=== PATIENT | male | born 1950 | race African-American/Black ===

== ENCOUNTER 2016-07-24 09:14 | Emergency (ER) | payer OTHER ==
[2016-07-24 09:22] VITALS: TEMP 97.8; BMI 34.0
--- NOTE | 2016-07-24 09:36 | PDOC ---
History of Present Illness - General History Source: Patient Exam Limitations: No Limitations - History of Present Illness Initial Comments: 07/24/16 10:50 The patient is a 66 year old male with a significant past medical history of hypertension, hyperlipidemia, and hepatitis C (s/p kait) who presets to the ED with complaints of intermittent episodes shortness of breath since last night. The patient reports feeling alittle tightness/pressure associated with mild sob last night, that resolved. 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 After he got back, he endorses feeling again a tignthess/sob discomfort that resolved after belching at approx 7:10 this morning. Pt states he is fairly active and has never felt sob/cp in the past. Pt endorses having a stress test approx 1-2 years ago that was normal. Patient also states he has been under a lot of stress lately secondary to his being in and out of the hospital for the last several weeks. He reports feeling jittery upon his arrival to the ED. denies palpitations, caffeine use. Patient denies fevers or chills. Denies chest pain or palpitations. Denies abdominal pain, nausea, vomiting, or diarrhea. Denies cough or headache. Denies any other symptoms. Social hx: The patient is a former smoker. <Jose R Liang - Last Filed: 07/24/16 12:17> <Geraldo Zambrano - Last Filed: 07/24/16 15:06> - General Chief Complaint: Shortness of Breath Stated Complaint: SOB Time Seen by Provider: 07/24/16 09:25 Past History <Jose R Liang - Last Filed: 07/24/16 12:17> - Past Medical History HTN: Yes Hypercholesterolemia: Yes Liver Disease: Yes ("I HAD HEP C-NOT ANYMORE") - Surgical History Cholecystectomy: Yes - Immunization History Immunization Up to Date: Yes - Psycho/Social/Smoking Cessation Hx Suicidal Ideation: No Smoking History: Former smoker Have you smoked in the past 12 months: No Information on smoking cessation initiated: No Hx Alcohol Use: No Drug/Substance Use Hx: No Substance Use Type: None <Geraldo Zambrano - Last Filed: 07/24/16 15:06> - Past Medical History Allergies/Adverse Reactions: Allergies Allergy/AdvReac Type Severity Reaction Status Date / Time erythromycin base Allergy Verified 07/24/16 09:17 Home Medications: Ambulatory Orders Nebivolol [Bystolic -] 5 mg PO DAILY 09/23/15 Simvastatin 40 mg PO DAILY 07/24/16 Review of Systems - Review of Systems Able to Perform ROS?: Yes Comments:: 07/24/16 10:51 CONSTITUTIONAL: No reported: Fever, Chills, Diaphoresis, Generalized Weakness, Malaise, Loss of Appetite HEENT: No reported: Rhinorrhea, Nasal Congestion, Throat Pain, Throat Swelling, Difficulty Swallowing, Mouth Swelling, Ear Pain, Eye Pain, Visual Changes CARDIOVASCULAR: No reported: Chest Pain, Syncope, Palpitations, Irregular Heart Rate, Lightheadedness, Peripheral Edema RESPIRATORY: + shortness of breath, No reported:Cough, SOB with Exertion, Orthopnea, Wheezing, Stridor, Hemoptysis GASTROINTESTINAL: No reported: Abdominal pain, Abdominal Distension, Nausea, Vomiting, Diarrhea, Constipation, Melena, Hematochezia GENITOURINARY: No reported: Dysuria, Frequency, Urgency, Hesitancy, Flank Pain, Genital Pain MUSCULOSKELETAL: No reported: Myalgia, Arthralgia, Joint Swelling, Back pain, Neck Pain SKIN: No reported: Rash, Itching, Pallor HEMEATOLOGIC/IMMUNOLOGIC: No reported: Easy Bleeding, Easy Bruising, Lymphadenopathy, Frequent infections ENDOCRINE: No reported: Unexplained Weight Gain, Unexplained Weight Loss, Heat Intolerance , Cold Intolerance NEUROLOGIC: No reported: Headache, Focal Weakness, Paresthesias, Vertigo, Lightheadedness, Unsteady Gait, Seizure, Mental Status Changes, Incontinence PSYCHIATRIC: No reported: Anxiety, Depression All Other Systems: Reviewed and Negative <Jose R Liang - Last Filed: 07/24/16 12:17> *Physical Exam - Vital Signs Last Vital Signs Temp Pulse Resp BP Pulse Ox 97.8 F 69 19 135/83 95 07/24/16 09:17 07/24/16 09:17 07/24/16 09:17 07/24/16 09:17 07/24/16 09:17 - Physical Exam Comments: 07/24/16 10:51 GENERAL: The patient is awake, alert, and fully oriented, Nontoxic - in no acute distress. HEAD: Normocephalic, atraumatic. EYES: extraocular movements intact, sclera anicteric, conjunctiva clear. ENT: Normal voice, Moist mucous membranes. NECK: Normal range of motion, supple LUNGS: Breath sounds equal, clear to auscultation bilaterally. No wheezes, no rhonchi, no rales. HEART: Regular rate and rhythm, without murmur, rub or gallop. ABDOMEN: + Regular obese abdomen. Soft, nontender, normoactive bowel sounds. No guarding, no rebound.No CVA tenderness EXTREMITIES: + 1+ pitting edema bilaterally. Normal range of motion. No clubbing or cyanosis. No cords, erythema, or tenderness. NEUROLOGICAL: No facial assymetry, Normal speech, movinga ll 4 extremities spontaneously and symmetrically PSYCH: Normal mood, normal affect. SKIN: Warm, Dry, normal turgor, <Jose R Liang - Last Filed: 07/24/16 12:17> - Vital Signs Last Vital Signs Temp Pulse Resp BP Pulse Ox 97.8 F 69 19 135/83 95 07/24/16 09:17 07/24/16 09:17 07/24/16 09:17 07/24/16 09:17 07/24/16 09:17 <Geraldo Zambrano - Last Filed: 07/24/16 15:06> Heart Score/ECG Review - ECG Impressions Comment:: 07/24/16 10:25 Twelve-lead EKG was performed and reviewed by me. There is normal sinus rhythm with a normal rate. Rate of 68 The axis is normal. The intervals are normal. There is normal R wave progression There are no ST or T wave abnormalities. Impression: Normal twelve-lead EKG <Geraldo Zambrano - Last Filed: 07/24/16 15:06> ED Treatment Course - LABORATORY CBC & Chemistry Diagram: 07/24/16 10:14 07/24/16 10:14 - ADDITIONAL ORDERS Additional order review: Laboratory Results 07/24/16 07/24/16 07/24/16 10:20 10:14 10:14 VBG pH 7.41 POC VBG pCO2 42.0 POC VBG pO2 61.6 H Mixed VBG HCO3 26.1 H Sodium 142 Potassium 3.8 Chloride 106 Carbon Dioxide 25 Anion Gap 11 BUN 9 D Creatinine 0.9 Creat Clearance w eGFR > 60 Random Glucose 104 Calcium 8.8 Total Bilirubin 0.5 D AST 22 D ALT 28 Alkaline Phosphatase 56 Creatine Kinase 558 H CK-MB (CK-2) Rel Index Cancelled Troponin I < 0.02 B-Natriuretic Peptide 29.68 Total Protein 7.6 Albumin 4.0 07/24/16 10:14 RBC 4.79 MCV 89.9 MCHC 32.6 RDW 14.2 MPV 7.7 Neutrophils % 67.3 Lymphocytes % 20.4 Monocytes % 9.7 Eosinophils % 1.8 Basophils % 0.8 - RADIOLOGY Radiograph Interpretation: 07/24/16 12:17 RAD/CHEST X-RAY PORTABLE Impression: Minimal left basilar atelectasis. Reported by: Patrick Penn <Jose R Liang - Last Filed: 07/24/16 12:17> - LABORATORY CBC & Chemistry Diagram: 07/24/16 10:14 07/24/16 10:14 <Geraldo Zambrano - Last Filed: 07/24/16 15:06> Medical Decision Making - Medical Decision Making 07/24/16 10:18 66Y M hx of htn, hcv presents with complaint of sob. 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 Pt currently asypmtomatic. on exam pts exam is unreamakble beside +1 pitting edema in the LE b/l without homans/calf tenderness. suspect indigestion/gas. 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 will ck ekg, labs, trop, cxr will reassess A portion of this note was documented by scribe services under my direction. I have reviewed the details of the note, within reason, and agree with the documentation with the following case summary and management plan written by me 07/24/16 10:32 cxr clear w/o infiltrate 07/24/16 11:15 The patient's blood work was reviewed The patient's CKs noted be elevated 500s troponin 1 is negative. I suspect that the patient's elevated CK is likely secondary to his exercising this morning I will give the patient's fluids will repeat another troponin at 2pm (6 hrs after his last episode of sob/chest pressure). 07/24/16 15:05 pts trop neg x2 pt asymptomatic will d/c the pt with pmd and cardiology fu return precautions were discussed I discussed the physical exam findings, ancillary test results and final diagnoses with the patient. I answered all of the patient's questions. The patient was satisfied with the care received and felt comfortable with the discharge plan and treatment plan. The patient will call their primary care physician within 24 hours to arrange follow-up and will return to the Emergency Department with any new, persistent or worsening symptoms. <Geraldo Zambrano - Last Filed: 07/24/16 15:06> *DC/Admit/Observation/Transfer - Attestations Scribe Attestion: 07/24/16 10:52 Documentation prepared by Jose R Liang, acting as medical lead for Geraldo Zambrano MD <Jose R Liang - Last Filed: 07/24/16 12:17> - Discharge Dispostion Admit: No <Geraldo Zambrano - Last Filed: 07/24/16 15:06> Diagnosis at time of Disposition: Abdominal bloating, SOB (shortness of breath) - Discharge Dispostion Disposition: HOME Condition at time of disposition: Improved - Referrals Referrals: Kojo Preston MD [Primary Care Provider] - - Patient Instructions Printed Discharge Instructions: DI for Atypical Chest Pain Additional Instructions: Return to the emergency department immediately with ANY new, persistent or worsening symptoms. You MUST call and follow up with your doctor tomorrow for further evaluation of your symptoms. Results were discussed with you. Please make sure your doctor reviews the results of your emergency evaluation. If you had any xrays during your visit, it was read preliminarily by myself, a Radiologist will review it and if there are any additional findings we will call you. Print Language: VENEZUELAN
[2016-07-24 10:26] LABS: BASOPHIL 0.8 % (0-2.0); EOSINOPHIL 1.8 % (0-4.5); MCH 29.3 pg (25.7-33.7); MCHC 32.6 g/dl (32.0-35.9); MEAN CELL VOLUME 89.9 fl (80-96); MEAN PLT VOLUME 7.7 fl (7.5-11.1); NEUTROPHILS 67.3 % (42.8-82.8); PLATELET COUNT 194 K/MM3 (134-434); RDW 14.2 % (11.9-15.9); WHITE BLOOD COUNT 5.9 K/mm3 (4.0-10.0)
[2016-07-24 10:38] LABS: VENOUS PH 7.41 (7.32-7.42)
[2016-07-24 10:39] LABS: VENOUS BLOOD GAS HCO3 26.1 meq/L (19-25)
[2016-07-24 10:45] LABS: ANION GAP 11 (8-16); BILIRUBIN,TOTAL 0.5 mg/dL (0.2-1.0); CALCIUM 8.8 mg/dL (8.5-10.1); CO2 25 mmol/L (21-32); CREATININE 0.9 mg/dL (0.7-1.3); GLUCOSE,RANDOM 104 mg/dL (74-106); SGOT/AST 22 U/L (15-37); SGPT/ALT 28 U/L (12-78); TOT PROT 7.6 g/dl (6.4-8.2)
[2016-07-24 10:47] LABS: ALK PHOS 56 U/L (45-117); TROPONIN I < 0.02 ng/ml (0.00-0.05)
[2016-07-24] MEDS ORDERED: SODIUM CHLORIDE 500 ML IV STA (10:59)
[2016-07-24 14:59] LABS: TROPONIN I < 0.02 ng/ml (0.00-0.05)
[2016-07-24 15:57] VITALS: BP 135/80; PULSE 80
--- NOTE | 2016-07-24 16:33 | EKG ---
Test Reason : Blood Pressure : / mmHG Vent. Rate : 068 BPM Atrial Rate : 068 BPM P-R Int : 162 ms QRS Dur : 082 ms QT Int : 392 ms P-R-T Axes : 049 -18 002 degrees QTc Int : 416 ms NORMAL SINUS RHYTHM NONSPECIFIC ST ABNORMALITY Confirmed by MD VAUGHN GREGORY ([id number]) on 07/24/2016 4:33:15 PM Referred By: Confirmed By:SOUMYA VAUGHN MD
== END 2016-07-24 15:58 | disposition home or self-care (01) ==
LOC: JER 09:14
PROC: 3E0337Z Introduction of Electrolytic and Water Balance Substance into Peripheral Vein, Percutaneous Approach (ICD-10-PCS; principal; 2016-07-24)
DX: R14.0 Abdominal distension (gaseous) (principal); R06.02 Shortness of breath; I10 Essential (primary) hypertension; E78.00 Pure hypercholesterolemia, unspecified; E78.5 Hyperlipidemia, unspecified; Z86.19 Personal history of other infectious and parasitic diseases
CPT/HCPCS: 36415; 71010-TC; 80053; 82550; 82553; 82803; 83880; 84484; 85025; 93005; 93010; 96360; 99283-25

== ENCOUNTER 2016-08-22 02:55 | Emergency (ER) | payer SELFPAY ==
[2016-08-22 03:37] VITALS: BP 146/99; PULSE 72; TEMP 97.2; BMI 32.3
--- NOTE | 2016-08-22 05:06 | PDOC ---
History of Present Illness - General Stated Complaint: INJURY Time Seen by Provider: 08/22/16 04:32 History Source: Patient Exam Limitations: No Limitations - History of Present Illness Initial Comments: 08/22/16 05:00 66yo Male patient presents to ED c/o left foot pain. Patient states he has a splinter stuck in his foot. He states he was walking barefoot in his house when incident occurred. Patient states his tried to remove splinter but was unsuccessful. Denies hx: DM. Denies any other complaints. Report tetanus status unknown. Occurred: reports: yesterday Severity: Yes: moderate Lower Extremity Pain Location: left: foot Method of Injury: Yes: other (Splinter stuck in foot plantar surface) Modifying Factors: worse with: None, cold therapy, immobilization, pain medication, rest, other Lower Ext. Injury Location - Specific Injury Location Foot: right foot no evidence of injury, right foot normal inspection, right foot non-tender, left foot soft tissue tenderness, left foot infection, left foot pain, left foot swelling, bilateral foot normal range of motion Extremity Pain Location - Extremity Pain Location Extremity Pain Locations: left: foot Past History - Travel Traveled outside of the country in the last 30 days: No Close contact w/someone who was outside of country & ill: No - Past Medical History Allergies/Adverse Reactions: Allergies Allergy/AdvReac Type Severity Reaction Status Date / Time erythromycin base Allergy Verified 08/22/16 03:37 Home Medications: Ambulatory Orders Nebivolol [Bystolic -] 5 mg PO DAILY 09/23/15 Simvastatin 40 mg PO DAILY 07/24/16 Cephalexin Monohydrate [Keflex -] 500 mg PO BID #14 capsule 08/22/16 HTN: Yes Hypercholesterolemia: Yes Liver Disease: Yes ("I HAD HEP C-NOT ANYMORE") - Surgical History Cholecystectomy: Yes - Immunization History Immunization Up to Date: Yes - Psycho/Social/Smoking Cessation Hx Suicidal Ideation: No Smoking History: Never smoked Have you smoked in the past 12 months: No Information on smoking cessation initiated: No Hx Alcohol Use: No Drug/Substance Use Hx: No Substance Use Type: None Review of Systems - Review of Systems Able to Perform ROS?: Yes Is the patient limited Turkmen proficient: No Musculoskeletal: Yes: Other (Foot Pain (Left)) Integumentary: Yes: Other (Splinter stuck in foot (plantar surface)) All Other Systems: Reviewed and Negative *Physical Exam - Vital Signs Last Vital Signs Temp Pulse Resp BP Pulse Ox 97.2 F L 72 19 146/99 98 08/22/16 03:21 08/22/16 03:21 08/22/16 03:21 08/22/16 03:21 08/22/16 03:21 - Physical Exam General Appearance: Yes: Nourished, Appropriately Dressed. No: Apparent Distress, Mild Distress, Moderate Distress, Severe Distress Respiratory/Chest: positive: Lungs Clear, Normal Breath Sounds. negative: Chest Tender, Respiratory Distress, Accessory Muscle Use, Labored Respiration, Rapid RR Cardiovascular: positive: Regular Rhythm, Regular Rate. negative: Edema, JVD, Murmur Musculoskeletal: positive: Normal Inspection. negative: CVA Tenderness, CVA Tenderness (R), CVA Tenderness (L), Decreased Range of Motion, Muscle Spasm, Vertebral Tenderness Extremity: positive: Normal Capillary Refill, Normal Inspection, Normal Range of Motion, Swelling, Erythema, Inflammation, Other (Plantar surface pain, swelling, and sign of infection.) Integumentary: positive: Normal Color, Dry, Warm, Erythema, Swelling Neurologic: positive: corn chip maker II-XII NML intact, Fully Oriented, Alert, Normal Mood/ Affect, Normal Response, Motor Strength 5/5 *DC/Admit/Observation/Transfer Diagnosis at time of Disposition: Left foot pain, Foreign body in soft tissue - Discharge Dispostion Disposition: HOME Condition at time of disposition: Improved Admit: No - Prescriptions Prescriptions: Cephalexin Monohydrate [Keflex -] 500 mg PO BID #14 capsule - Patient Instructions Printed Discharge Instructions: DI for Foot Pain Additional Instructions: FOLLOW UP WITH PRIMARY CARE PROVIDER THIS WEEK. CALL TO SCHEDULE APPOINTMENT. TAKE MEDICATIONS PRESCRIBED. MOTRIN OR TYLENOL FOR PAIN NEEDED. MONITOR FOR SIGNS OF INFECTION SUCH DRAINAGE, INCREASED PAIN, SWELLING, OR REDNESS. Print Language: [place] - Post Discharge Activity Work/School Note: Back to Work
[2016-08-22] MEDS ORDERED: CEPHALEXIN MONOHYDRATE 500 MG CAPSULE (UD) PO ONE (05:10)
[2016-08-22] MEDS ORDERED: TETANUS AND DIPHTHERIA TOXOID 0.5 ML DISP.SYRIN IM ONE (05:10)
[2016-08-22] MEDS ORDERED: CEPHALEXIN MONOHYDRATE 250 MG CAPSULE (FP) ONE (05:13)
== END 2016-08-22 05:25 | disposition home or self-care (01) ==
LOC: JER 02:55
PROC: 3E0234Z Introduction of Serum, Toxoid and Vaccine into Muscle, Percutaneous Approach (ICD-10-PCS; principal; 2016-08-22)
DX: S90.852A Superficial foreign body, left foot, initial encounter (principal); W45.8XXA Other foreign body or object entering through skin, initial encounter; W22.8XXA Striking against or struck by other objects, initial encounter; Y93.01 Activity, walking, marching and hiking; Y92.038 Other place in apartment as the place of occurrence of the external cause; I10 Essential (primary) hypertension; E78.00 Pure hypercholesterolemia, unspecified
CPT/HCPCS: 90471; 90715; 99281-25

== ENCOUNTER 2016-09-19 11:26 | Emergency (ER) | payer OTHER ==
[2016-09-19 11:36] VITALS: BP 144/83; PULSE 59; TEMP 97.6; BMI 34.7
[2016-09-19] MEDS ORDERED: KETOROLAC TROMETHAMINE 60 MG/2 ML VIAL IM ONE (12:36)
--- NOTE | 2016-09-19 12:36 | PDOC ---
History of Present Illness - General Chief Complaint: Back Pain Stated Complaint: LOWER BACK PAIN Time Seen by Provider: 09/19/16 11:52 - History of Present Illness Initial Comments: 09/19/16 12:35 CHIEF COMPLAINT: lower back pain HISTORY OF PRESENT ILLNESS: 66 yo M with hx of HTN, HLD and hep C presents to ED with lower back pain. 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 He denies any nausea, vomiting, loss of bowel or bladder function, loss of sensation or numbness or tingling to his legs. No recent travel or sick contacts. PAST MEDICAL HISTORY: Denies past medical history FAMILY HISTORY: Denies SOCIAL HISTORY:Denies tobacco, alcohol, illicit drug use. SURGICAL HISTORY: Denies ALLERGIES: erythromycin REVIEW OF SYSTEMS General/Constitutional: Denies fever or chills. Denies weakness, weight change. HEENT: Denies change in vision. Denies ear pain or discharge. Denies sore throat. Cardiovascular: Denies chest pain or shortness of breath. Respiratory: Denies cough, wheezing, or hemoptysis. Gastrointestinal: Denies nausea, vomiting, diarrhea or constipation. Denies rectal bleeding. Genitourinary: Denies dysuria, frequency, or change in urination. Musculoskeletal: lower back pain x 1 week. Denies joint or muscle swelling or pain. PHYSICAL EXAM General Appearance: Well-appearing, appropriately dressed. No apparent distress , no intoxication. HEENT: EOMI, PERRLA, normal ENT inspection, normal voice, TMs normal, pharynx normal. No conjunctival pallor. No photophobia, scleral icterus. Neck: No tenderness to cevrical spien. Supple. Trachea midline. No tenderness, rigidity, carotid bruit, stridor, lymphadenopathy, or thyromegaly. Respiratory/Chest: Lungs CTAB. Cardiovascular: RRR. S1, S2. Musculoskeletal/Extremities: Reproducible tenderness to R lower back on palpation. Positive straight leg test. No tenderness to thoracic or lumbar spine Normal inspection. FROM of all extremities, normal capillary refill. Pelvis Stable. No CVA tenderness. No tenderness to extremities, pedal edema, swelling, erythema or deformity. Integumentary: Appropriate color, dry, warm. No cyanosis, erythema, jaundice or rash Neurologic: cloth dyeing range tender II-XII intact. Fully oriented, alert. Appropriate mood/affect. Motor strength 5/5. No appreciable EOM palsy, facial droop or sensory deficit. 09/19/16 12:37 09/19/16 12:45 Past History - Past Medical History Allergies/Adverse Reactions: Allergies Allergy/AdvReac Type Severity Reaction Status Date / Time erythromycin base Allergy Verified 09/19/16 11:36 Home Medications: Ambulatory Orders Nebivolol [Bystolic -] 5 mg PO DAILY 09/23/15 Simvastatin 40 mg PO DAILY 07/24/16 Cephalexin Monohydrate [Keflex -] 500 mg PO BID #14 capsule 08/22/16 Cyclobenzaprine HCl [Flexeril 10 mg] 10 mg PO HS PRN #10 tablet 09/19/16 Naproxen 250 mg PO BID #20 tablet 09/19/16 HTN: Yes Hypercholesterolemia: Yes Liver Disease: Yes ("I HAD HEP C-NOT ANYMORE") - Surgical History Cholecystectomy: Yes - Immunization History Immunization Up to Date: Yes - Psycho/Social/Smoking Cessation Hx Suicidal Ideation: No Smoking History: Never smoked Have you smoked in the past 12 months: No Information on smoking cessation initiated: No Hx Alcohol Use: No Drug/Substance Use Hx: No Substance Use Type: None *Physical Exam - Vital Signs Last Vital Signs Temp Pulse Resp BP Pulse Ox 97.6 F 59 L 19 144/83 97 09/19/16 11:34 09/19/16 11:34 09/19/16 11:34 09/19/16 11:34 09/19/16 11:34 Medical Decision Making - Medical Decision Making 09/19/16 12:40 66 yo M with hx of HTN, HLD, hep C presents to fast track with lower back pain x 1 week radiating to R leg. 60 mg Toradol Rx for Flexeril and naproxen sent to pharm. Advised patient to take medication as prescribed and follow up with orthopedics within the next week. Advised patient of signs and symptoms for return to ED. Patient verbalized understanding and agrees to plan. *DC/Admit/Observation/Transfer Diagnosis at time of Disposition: Lower back pain Qualifiers: Chronicity: acute Back pain laterality: right Sciatica presence: with sciatica Sciatica laterality: sciatica of right side Qualified Code(s): M54.41 - Lumbago with sciatica, right side - Discharge Dispostion Disposition: HOME Condition at time of disposition: Stable Admit: No - Prescriptions Prescriptions: Cyclobenzaprine HCl [Flexeril 10 mg] 10 mg PO HS PRN #10 tablet PRN Reason: Back Pain Naproxen 250 mg PO BID #20 tablet - Referrals Referrals: Kojo Preston MD [Primary Care Provider] - Pito Mcclain MD [Staff Physician] - - Patient Instructions Printed Discharge Instructions: DI for Low Back Pain, DI for Back Pain With Sciatica Additional Instructions: Please take medication as prescribed and follow up with orthopedics in one week. If you experience any loss of bowel or bladder function, loss of sensation or numbness or tingling to your legs, or fever, nausea, vomiting, or any new or worsening symptoms, please return to the ER.
[2016-09-19] MEDS ORDERED: KETOROLAC TROMETHAMINE 60 MG/2 ML VIAL ONE (12:41)
== END 2016-09-19 13:07 | disposition home or self-care (01) ==
LOC: JERFT 11:26
PROC: 3E0233Z Introduction of Anti-inflammatory into Muscle, Percutaneous Approach (ICD-10-PCS; principal; 2016-09-19)
DX: M54.41 Lumbago with sciatica, right side (principal); I10 Essential (primary) hypertension; E78.00 Pure hypercholesterolemia, unspecified
CPT/HCPCS: 96372; 99281-25

== ENCOUNTER 2017-06-16 16:37 | Emergency (ER) | payer OTHER ==
[2017-06-16 17:07] VITALS: BP 156/113; PULSE 78; TEMP 98.2; BMI 34.0
--- NOTE | 2017-06-16 17:07 | PDOC ---
Rapid Medical Evaluation Time Seen by Provider: 06/16/17 17:03 Medical Evaluation: Allergies Allergy/AdvReac Type Severity Reaction Status Date / Time erythromycin base Allergy Verified 09/19/16 11:36 06/16/17 17:03 I have performed a brief in-person evaluation of this patient. The patient presents with a chief complaint of: dysuria and urinary frequency- not sexually active presently Pertinent physical exam findings: M/S: No CVAT ABD: SNTND I have ordered the following: BGM, UA, urine cx The patient will proceed to the ED for further evaluation. Discharge Disposition - Diagnosis Urinary problem - Referrals - Patient Instructions - Post Discharge Activity
--- NOTE | 2017-06-16 17:37 | PDOC ---
History of Present Illness - General Chief Complaint: Urinary Problem Stated Complaint: URIANRY FREQ Time Seen by Provider: 06/16/17 17:03 History Source: Patient - History of Present Illness Timing/Duration: reports: constant Past History - Past Medical History Allergies/Adverse Reactions: Allergies Allergy/AdvReac Type Severity Reaction Status Date / Time erythromycin base Allergy Verified 06/16/17 17:07 Home Medications: Ambulatory Orders Nebivolol [Bystolic -] 5 mg PO DAILY 09/23/15 Simvastatin 40 mg PO DAILY 07/24/16 COPD: No HTN: Yes Hypercholesterolemia: Yes Liver Disease: Yes ("I HAD HEP C-NOT ANYMORE") - Surgical History Cholecystectomy: Yes - Immunization History Immunization Up to Date: Yes - Suicide/Smoking/Psychosocial Hx Smoking History: Never smoked Have you smoked in the past 12 months: No Hx Alcohol Use: No Drug/Substance Use Hx: No Substance Use Type: None Review of Systems - Review of Systems Constitutional: No: Chills, Fever, Unexplained wgt Loss : Yes: Frequency. No: Discharge, Flank Pain, Hematuria *Physical Exam - Vital Signs Last Vital Signs Temp Pulse Resp BP Pulse Ox 98.2 F 78 20 156/113 96 06/16/17 17:05 06/16/17 17:05 06/16/17 17:05 06/16/17 17:05 06/16/17 17:05 - Physical Exam General Appearance: Yes: Appropriately Dressed. No: Apparent Distress HEENT: positive: Normal Voice Neck: positive: Supple Respiratory/Chest: negative: Respiratory Distress Gastrointestinal/Abdominal: positive: Soft. negative: Tender Musculoskeletal: negative: CVA Tenderness Integumentary: positive: Dry, Warm Neurologic: positive: Fully Oriented, Alert, Normal Mood/Affect Medical Decision Making - Medical Decision Making 06/16/17 17:37 67-year-old male history of hypertension, hyperlipidemia and hep C, presents with "stinging" with urination and urinary frequency since yesterday. No hematuria, abdominal pain, flank pain, rectal pain, nausea, vomiting, fever or chills. No unexplained weight loss. No urethral discharge and no history of STDs. Patient not currently sexually active. No h/o renal stone. Patient states he does have a history of BPH and had a negative biopsy several years ago. Not on any meds for his prostate at this time. See exam Dyuria/freq R/o UTI vs onset DM, possible prostate etiology given h/o BPH (neg bx in past per pt) Well ollie w/ elevated BP, exam otherwise unremarkable -ua/cx -BGM 06/16/17 18:01 06/16/17 18:02 06/16/17 18:50 FS 108 per nurse. UA w/ no s/o infxn. ucx sent. Will hold off on abx for now. Will dc w/ f/u for evaluation of possible prostate. 06/16/17 18:55 *DC/Admit/Observation/Transfer Diagnosis at time of Disposition: Urinary frequency - Discharge Dispostion Disposition: HOME Condition at time of disposition: Good - Referrals Referrals: Kojo Preston MD [Primary Care Provider] - - Patient Instructions Additional Instructions: The cause of your urinary complaints are unclear at this time, but could possibly be due to an enlarged prostate. Your blood sugar was normal and your urine did not show any signs of infection. We did send off a urine culture which will be back in a few days and if it is abnormal, we will contact you. Otherwise, please follow-up with your urologist - Post Discharge Activity
[2017-06-16 18:24] LABS: URINE APPEARANCE CLEAR; URINE BILIRUBIN NEGATIVE (NEGATIVE); URINE BLOOD NEGATIVE (NEGATIVE); URINE COLOR STRAW; URINE GLUCOSE (UA) NEGATIVE (NEGATIVE); URINE KETONE NEGATIVE (NEGATIVE); URINE LEUK ESTERASE NEGATIVE (NEGATIVE); URINE NITRITE NEGATIVE (NEGATIVE); URINE PROTEIN NEGATIVE (NEGATIVE); URINE UROBILINOGEN NEGATIVE mg/dL (0.2-1.0)
== END 2017-06-16 19:01 | disposition home or self-care (01) ==
LOC: JERFT 16:37
DX: R35.0 Frequency of micturition (principal); I10 Essential (primary) hypertension; E78.00 Pure hypercholesterolemia, unspecified; N40.0 Benign prostatic hyperplasia without lower urinary tract symptoms
CPT/HCPCS: 81003; 82962; 87086; 99281-25

== ENCOUNTER 2017-06-26 17:38 | Emergency (ER) | payer OTHER ==
[2017-06-26 17:43] VITALS: TEMP 97.5; BMI 33.5
--- NOTE | 2017-06-26 19:46 | PDOC ---
History of Present Illness - History of Present Illness Initial Comments: Mr. Romero is a 67yo M with a PMHx of HTN, HLD (on statin), Hep C (s/p treatment) who presents with intermittent dull back pain. Pain is located in L suprascapular area, is dull, at worst 4-10, characterized as a "pulling" sensation. Onset occurs with certain movements of the neck such as forward flexion. Pain radiates from L suprascapular region down to infrascapular, L arm , and at times into L chest. At times the pain resolves with rotating his shoulders, and other times the pain resolves on its own. Denies chest pressure, SOB, palpitations. Denies sharp/shooting pain, numbness, tingling, weakness. Started statin 2 years ago, but denies other muscle aches. Denies history of osteoarthritis. PMD - Dr Preston PMHx - HTN, HLD, Hepatitis C (s/p treatment) Allergies - Erythromycin SH - Denies alcohol/smoking/drugs <Alejandra Moon - Last Filed: 06/26/17 21:24> <Sushma Hernandez - Last Filed: 06/26/17 21:36> - General Chief Complaint: Pain Stated Complaint: PAIN Time Seen by Provider: 06/26/17 19:17 Past History - Past Medical History CVA: No COPD: No HTN: Yes Hypercholesterolemia: Yes Liver Disease: Yes ("I HAD HEP C-NOT ANYMORE") - Surgical History Cholecystectomy: Yes - Immunization History Immunization Up to Date: Yes - Suicide/Smoking/Psychosocial Hx Smoking History: Never smoked Have you smoked in the past 12 months: No Hx Alcohol Use: No Drug/Substance Use Hx: No Substance Use Type: None <Alejandra Moon - Last Filed: 06/26/17 21:24> <Sushma Hernandez - Last Filed: 06/26/17 21:36> - Past Medical History Allergies/Adverse Reactions: Allergies Allergy/AdvReac Type Severity Reaction Status Date / Time erythromycin base Allergy Verified 06/26/17 17:42 Home Medications: Ambulatory Orders Nebivolol [Bystolic -] 5 mg PO DAILY 09/23/15 Ibuprofen [Motrin -] 600 mg PO QID PRN #28 tablet 06/26/17 *Physical Exam - Vital Signs Last Vital Signs Temp Pulse Resp BP Pulse Ox 97.5 F L 80 18 142/84 97 06/26/17 17:39 06/26/17 17:39 06/26/17 17:39 06/26/17 17:39 06/26/17 17:39 - Physical Exam Comments: GEN: AAOx3, NAD, Lying comfortably HEENT: PERRLA, EOMi CV: S1, S2, RRR LUNG: CTABL ABD: Soft, NT, ND, normoactive BS MSK: Mild tenderness to palpation in L suprascapular region, lateral to C-spine Increased muscular tenderness upon neck flexion Mild tenderness to palpation in the midsternal chest 5/5 muscle strength in all extremities NEURO: CN 2-12 intact, no sensation deficits <Alejandra Moon - Last Filed: 06/26/17 21:24> - Vital Signs Last Vital Signs Temp Pulse Resp BP Pulse Ox 97.5 F L 80 18 142/84 97 06/26/17 17:39 06/26/17 17:39 06/26/17 17:39 06/26/17 17:39 06/26/17 17:39 <Sushma Hernandez - Last Filed: 06/26/17 21:36> ED Treatment Course - ADDITIONAL ORDERS Additional order review: Laboratory Results 06/26/17 19:54 Creatine Kinase 400 H Creatine Kinase Index 0.4 CK-MB (CK-2) 1.958 Troponin I < 0.02 - Medications Given in the ED: ED Medications Discontinued Medications Generic Name Dose Route Start Last Admin Trade Name Freq PRN Reason Stop Dose Admin Ibuprofen 600 mg 06/26/17 21:20 06/26/17 21:27 Motrin - PO 06/26/17 21:21 600 mg ONCE ONE Administration <Sushma Hernandez - Last Filed: 06/26/17 21:36> Medical Decision Making - Medical Decision Making 67yo M with PMHx of HTN, HLD (on statin) who presents with L suprascapular back pain worsening and improving with certain movements. DDx includes: Muscle strain (most likely), Statin induced myopathy. Less likely ddx includes atypical ACS, Cervical spine disease -- Cardiac Profile, EKG -- CPK -- CXR r/o mass -- Defer on pain control for now since pain is 06/09. 06/26/17 21:24 Troponins are WNL. CXR shows no acute pathology. CPK is high in 400s. Prior labs indicate similar elevations in CPK. 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 Will encourage discontinuing statins for now and f/u with PMD. Will prescribe motrin. Dispo home. Case d/w Dr Hernandez <Alejandra Moon - Last Filed: 06/26/17 21:24> *DC/Admit/Observation/Transfer - Discharge Dispostion Admit: No <Alejandra Moon - Last Filed: 06/26/17 21:24> <Sushma Hernandez - Last Filed: 06/26/17 21:36> Diagnosis at time of Disposition: Statin myopathy, Musculoskeletal back pain - Discharge Dispostion Disposition: HOME Condition at time of disposition: Stable - Prescriptions Prescriptions: Ibuprofen [Motrin -] 600 mg PO QID PRN #28 tablet PRN Reason: Pain - Referrals Referrals: Kojo Preston MD [Staff Physician] - - Patient Instructions Additional Instructions: You were seen in the Emergency room due to muscle pain on the left side. One of the markers of muscle inflammation (Creatine kinase) is high. This could be from using your cholesterol medicine. We advise you not to use your cholesterol medication. We will also give you a prescription for motrin for when the pain comes on. You should followup with your Primary Care Doctor this week. You will need to get followup bloodwork - Post Discharge Activity Forms/Work/School Notes: Back to Work
--- NOTE | 2017-06-26 20:05 | PDOC ---
Attending Attestation - ED Attending Attestation I have performed the following: I have examined & evaluated the patient, The case was reviewed & discussed with the resident, I agree w/resident's findings & plan
[2017-06-26] MEDS ORDERED: IBUPROFEN 600 MG TABLET (FP) PO ONE ×2 (21:20→21:24)
[2017-06-26 21:51] VITALS: BP 135/94; PULSE 65
--- NOTE | 2017-06-27 11:40 | EKG ---
Test Reason : Blood Pressure : / mmHG Vent. Rate : 081 BPM Atrial Rate : 081 BPM P-R Int : 154 ms QRS Dur : 084 ms QT Int : 374 ms P-R-T Axes : 060 -24 013 degrees QTc Int : 434 ms NORMAL SINUS RHYTHM POSSIBLE LEFT ATRIAL ENLARGEMENT BORDERLINE ECG WHEN COMPARED WITH ECG OF 24-JUL-2016 10:09, NO SIGNIFICANT CHANGE WAS FOUND Confirmed by MD RODERICK, SOUMYA ([id number]) on 06/27/2017 11:40:16 AM Referred By: Confirmed By:SOUMYA VAUGHN MD
== END 2017-06-26 21:51 | disposition home or self-care (01) ==
LOC: JER 17:38
DX: G72.0 Drug-induced myopathy (principal); T46.6X5A Adverse effect of antihyperlipidemic and antiarteriosclerotic drugs, initial encounter; Y92.038 Other place in apartment as the place of occurrence of the external cause
CPT/HCPCS: 36415; 71045-TC; 82550; 82553; 84484; 93005; 93010; 99282-25

== ENCOUNTER 2017-08-18 22:06 | Emergency (ER) | payer OTHER, MEDICARE ==
[2017-08-18 22:19] VITALS: BP 142/95; PULSE 78; TEMP 97.9; BMI 33.5
--- NOTE | 2017-08-18 22:27 | PDOC ---
History of Present Illness - General Chief Complaint: Laceration Stated Complaint: LACERATION Time Seen by Provider: 08/18/17 22:23 History Source: Patient - History of Present Illness Initial Comments: 08/18/17 22:38 67 year old male with left index finger tip skin avulsion while cutting meat. no bone involvement. reports persistent bleeding.last tetanus 2016. Past History - Past Medical History Allergies/Adverse Reactions: Allergies Allergy/AdvReac Type Severity Reaction Status Date / Time erythromycin base Allergy Verified 08/18/17 22:15 Home Medications: Ambulatory Orders Nebivolol [Bystolic -] 5 mg PO DAILY 09/23/15 Cephalexin Monohydrate [Keflex -] 500 mg PO BID #14 capsule 08/18/17 Simvastatin [Zocor -] 40 mg PO HS 08/18/17 CVA: No COPD: No HTN: Yes Hypercholesterolemia: Yes Liver Disease: Yes ("I HAD HEP C-NOT ANYMORE") - Surgical History Cholecystectomy: Yes - Immunization History Immunization Up to Date: Yes - Suicide/Smoking/Psychosocial Hx Smoking History: Never smoked Have you smoked in the past 12 months: No Hx Alcohol Use: No Drug/Substance Use Hx: No Substance Use Type: None Review of Systems - Review of Systems Able to Perform ROS?: Yes Is the patient limited Korean proficient: No Constitutional: No: Symptoms Reported, See HPI, Chills, Diaphoresis, Fever, Loss of Appetite, Malaise, Night Sweats, Weakness, Weight Stable, Unintentional Wgt. Loss, Unexplained wgt Loss, Other Integumentary: Yes: Other (skin avulsion) *Physical Exam - Vital Signs Last Vital Signs Temp Pulse Resp BP Pulse Ox 97.9 F 78 16 142/95 98 08/18/17 22:17 08/18/17 22:17 08/18/17 22:17 08/18/17 22:17 08/18/17 22:17 - Physical Exam General Appearance: Yes: Appropriately Dressed Musculoskeletal: positive: Normal Inspection Extremity: positive: Other (left index finger skin avulsion) Progress Note - Progress Note Progress Note: A: skin avulsion P: pressure dressing applied. wound cleaned with saline. antibiotics *DC/Admit/Observation/Transfer Diagnosis at time of Disposition: Avulsion of skin of finger Qualifiers: Encounter type: initial encounter Qualified Code(s): S61.209A - Unspecified open wound of unspecified finger without damage to nail, initial encounter - Discharge Dispostion Disposition: HOME Condition at time of disposition: Good - Prescriptions Prescriptions: Cephalexin Monohydrate [Keflex -] 500 mg PO BID #14 capsule - Referrals - Patient Instructions Printed Discharge Instructions: DI for Avulsion Laceration (Not Requiring Sutures) Additional Instructions: keep wound clean and dry if bleeding apply pressure. take cephalexin as prescribed, follow up with your doctor in 2 days for a wound check. return to the ER if symptoms worsen. - Post Discharge Activity
== END 2017-08-18 22:43 | disposition home or self-care (01) ==
LOC: JERFT 22:06
DX: S61.217A Laceration without foreign body of left little finger without damage to nail, initial encounter (principal); I10 Essential (primary) hypertension; E78.00 Pure hypercholesterolemia, unspecified; B19.20 Unspecified viral hepatitis C without hepatic coma; W45.8XXA Other foreign body or object entering through skin, initial encounter; Y93.89 Activity, other specified; Y92.9 Unspecified place or not applicable
CPT/HCPCS: 99281-25

== ENCOUNTER 2018-08-31 10:30 | Day surgery (SDC) | payer OTHER ==
[2018-08-29 15:19] VITALS: BMI 33.5
[~2018-08-31 10:30] MED LIST: ACETAMINOPHEN 325 MG TABLET (FP) PO PRN
[2018-08-31] MEDS ORDERED: OFLOXACIN 0.3% OPHTHALMIC SOLUTION 5 ML BOTTLE ONE (10:49)
[2018-08-31] MEDS ORDERED: PHENYLEPHRINE 2.5% OPHTH SOLN 15 ML BOTTLE ONE (10:50)
[2018-08-31] MEDS ORDERED: CYCLOPENTOLATE HCL 1% OPHTH SOLN 2 ML BOTTLE ONE (10:50)
[2018-08-31] MEDS ORDERED: TROPICAMIDE 1% OPHTH SOLN 15 ML BOTTLE ONE (10:50)
[2018-08-31] MEDS ORDERED: KETOROLAC TROMETHAMINE 0.5% EYE DROP 1 DROP DROPS ONE (11:07)
[2018-08-31] MEDS: PHENYLEPHRINE 2.5% OPHTH SOLN 15 ML BOTTLE OP SCH ×3 (11:10→11:20)
[2018-08-31] MEDS: TROPICAMIDE 1% OPHTH SOLN 15 ML BOTTLE OP SCH ×3 (11:10→11:20)
[2018-08-31] MEDS: KETOROLAC TROMETHAMINE 0.5% EYE DROP 1 DROP DROPS OP SCH ×3 (11:10→11:20)
[2018-08-31] MEDS: CYCLOPENTOLATE HCL 1% OPHTH SOLN 2 ML BOTTLE OP SCH ×3 (11:10→11:20)
[2018-08-31] MEDS: OFLOXACIN 0.3% OPHTHALMIC SOLUTION 5 ML BOTTLE OP SCH ×3 (11:10→11:20)
[2018-08-31] MEDS ORDERED: MIDAZOLAM HCL 2 MG/2 ML SINGLE DOSE VIAL ONE (11:48)
[2018-08-31] MEDS ORDERED: POVIDONE-IODINE 5% OPHTHALMIC PREP 30 ML SOLUTION OS ONE (12:09)
[2018-08-31] MEDS ORDERED: LIDOCAINE HCL 1% PRESERVATIVE FREE - 30ML VIAL IO ONE (12:12)
[2018-08-31] MEDS ORDERED: EPINEPHrine/PF 1 MG/1 ML (1:1,000) AMPULE SQ ONE (12:12)
[2018-08-31] MEDS ORDERED: CHONDROITIN SU A/HYALUR SOD 1 KIT IO ONE (12:12)
[2018-08-31] MEDS ORDERED: BSS (NA/CA/MG/K) BALANCED SALT SOLUTION OPHTH SOLN 15 ML BOTTLE OS ONE (12:12)
--- NOTE | 2018-08-31 13:14 | SPEC ---
DATE OF OPERATION: DATE OF DICTATION: 08/31/2018 OPERATION: Phacoemulsification of left cataract with posterior chamber intraocular lens implantation. Lens used [id number], 23.0 diopter power, serial no. [id number]. PREOPERATIVE DIAGNOSIS: Cataract, left eye. POSTOPERATIVE DIAGNOSIS: Cataract, left eye. SURGEON: Jovani Silveira M.D. ANESTHESIA: Topical MAC. COMPLICATIONS: None. PROCEDURE: The patient was brought to the operating room and correctly identified along with the operative site and the correct intraocular lens power. The patient was then prepped and draped in the usual sterile fashion including 5% Betadine solution in the conjunctival sac and an eyelid drape. An eyelid speculum was then placed in the eye. A paracentesis port was created and approximately 0.5 mL of preservative-free lidocaine was then injected into the eye. Viscoelastic was then injected to inflate the anterior chamber. A temporal clear corneal wound was created. A continuous circular capsulorrhexis was performed. The nucleus was then hydrodissected with BSS and removed with phacoemulsification. The remaining cortical material was irrigated and aspirated. Viscoelastic was injected to inflate the capsular bag and the intraocular lens was then implanted into the capsular bag. The remaining Viscoelastic was irrigated and aspirated from the eye. The IOL was noted to be well centered and completely covered by the anterior capsulorrhexis. Topical vancomycin was placed and the eye patched and shielded. All wounds were tested and found to be watertight. No suture was placed. The eye was then shielded. The patient was then discharged from the operating room in stable condition. JOVANI SILVEIRA M.D. [id number]
[2018-08-31 13:21] VITALS: BP 127/90; PULSE 66; TEMP 97.8
== END 2018-08-31 13:23 | disposition home or self-care (01) ==
LOC: JASU-SURG 10:30
PROVIDERS: ATTEND Ophthalmology
PROC: 08RK3JZ Replacement of Left Lens with Synthetic Substitute, Percutaneous Approach (ICD-10-PCS; principal; 2018-08-31 12:00)
DX: H26.9 Unspecified cataract (principal)

== ENCOUNTER 2019-05-29 21:41 | Emergency (ER) | payer OTHER, MEDICARE ==
[2019-05-29 22:02] VITALS: PULSE 76; TEMP 98; BMI 36.1
--- NOTE | 2019-05-29 23:00 | PDOC ---
History of Present Illness - General Chief Complaint: Cold Symptoms Stated Complaint: COUGH Time Seen by Provider: 05/29/19 23:00 History Source: Patient Exam Limitations: No Limitations - History of Present Illness Initial Comments: 05/29/19 23:01 69yM w PMHx HTN, HLD (on statin), Hep C (s/p treatment) presenting w 2 week white productive cough, headaches, nasal congestion. Took cough syrup without relief. Denies fever/chills, nausea/vomiting, chest pain/SOB, sore throat. Past History - Past Medical History Allergies/Adverse Reactions: Allergies Allergy/AdvReac Type Severity Reaction Status Date / Time erythromycin base Allergy Verified 05/29/19 22:02 Home Medications: Ambulatory Orders Nebivolol [Bystolic -] 5 mg PO DAILY 09/23/15 Simvastatin [Zocor -] 40 mg PO HS 08/18/17 Anemia: No Asthma: No Cancer: No Cardiac Disorders: No CVA: No COPD: No CHF: No Dementia: No Diabetes: No GI Disorders: No Disorders: No HTN: Yes Hypercholesterolemia: Yes Liver Disease: Yes (remission) Seizures: No Thyroid Disease: No - Surgical History Cholecystectomy: Yes Orthopedic Surgery: Yes (ARTHROSCOPY RIGHT) - Immunization History Immunization Up to Date: Yes - Psycho Social/Smoking Cessation Hx Smoking History: Never smoked Have you smoked in the past 12 months: No Information on smoking cessation initiated: No Hx Alcohol Use: No Drug/Substance Use Hx: No Substance Use Type: None Hx Substance Use Treatment: No Review of Systems - Review of Systems Constitutional: No: Chills, Fever HEENTM: Yes: Nose Congestion. No: Eye Pain, Nose Pain, Throat Pain, Mouth Pain Respiratory: Yes: Cough. No: Shortness of Breath Cardiac (ROS): No: Chest Pain, Palpitations, Syncope ABD/GI: No: Abdominal Distended, Constipated, Diarrhea, Nausea, Vomiting : No: Burning, Dysuria, Hematuria Musculoskeletal: No: Back Pain, Joint Pain Integumentary: No: Bruising, Flushing, Lesions Neurological: Yes: Headache. No: Seizure, Tingling Psychiatric: No: Anxiety, Depression, Stressors Endocrine: No: Excessive Sweating, Flushing, Intolerance to Cold, Intolerance to Heat Hematologic/Lymphatic: No: Anemia, Blood Clots *Physical Exam - Vital Signs Last Vital Signs Temp Pulse Resp BP Pulse Ox 98 F 76 16 118/67 96 05/29/19 21:50 05/29/19 21:50 05/29/19 21:50 05/29/19 21:50 05/29/19 21:50 - Physical Exam General Appearance: Yes: Nourished, Appropriately Dressed. No: Apparent Distress HEENT: positive: EOMI, MINDI, Normal Voice, Nasal Congestion, Rhinorrhea, Hearing Grossly Normal. negative: Scleral Icterus (R), Scleral Icterus (L), Tonsillar Exudate, Tonsillar Erythema Respiratory/Chest: positive: Decreased Breath Sounds (MEGAN). negative: Chest Tender, Respiratory Distress, Accessory Muscle Use, Crackles, Rales, Rhonchi, Stridor, Wheezing Cardiovascular: positive: Regular Rhythm, Regular Rate, S1, S2. negative: Edema , Murmur Extremity: positive: Normal Capillary Refill Integumentary: positive: Normal Color Neurologic: positive: general laborer II-XII NML intact, Fully Oriented, Alert, Normal Mood/ Affect, Normal Response, Responsive. negative: Sensory Deficit, Confused, Disoriented Medical Decision Making - Medical Decision Making 05/29/19 23:14 CXR shows clear lung lynne, normal cardiac size, no consolidation 69yM w PMHx HTN, HLD (on statin), Hep C (s/p treatment) presenting w 2 week white productive cough, headaches, nasal congestion. Likely bronchitis vs bacterial sinusitis Low concern for PNA (no CXR consolidation) Given tylenol for headache. Consider amoxicillin 875 BID x7d Anticipate DC home w PCP f/u Signed out to night team Discharge - Discharge Information Problems reviewed: Yes Clinical Impression/Diagnosis: Nasal congestion with rhinorrhea Condition: Good - Follow up/Referral Referrals: Kojo Preston MD [Primary Care Provider] - - Patient Discharge Instructions - Post Discharge Activity
[2019-05-29] MEDS ORDERED: ACETAMINOPHEN 500 MG TABLET (FP) PO ONE (23:09)
[2019-05-29] MEDS ORDERED: ACETAMINOPHEN 325 MG TABLET (FP) ONE (23:34)
[2019-05-30] MEDS ORDERED: ALBUTEROL SO4 2.5/IPRATROPIUM 0.5 INH SOL 3 ML VIAL.NEB. NEB ONE (00:31)
--- NOTE | 2019-05-30 00:35 | PDOC ---
*Physical Exam - Vital Signs Last Vital Signs Temp Pulse Resp BP Pulse Ox 98 F 76 16 118/67 96 05/29/19 21:50 05/29/19 21:50 05/29/19 21:50 05/29/19 21:50 05/29/19 21:50 - Physical Exam General Appearance: Yes: Nourished, Appropriately Dressed HEENT: positive: EOMI, MINDI, Normal ENT Inspection, Pharynx Normal Neck: positive: Trachea midline, Normal Thyroid, Supple Respiratory/Chest: positive: Labored Respiration, Wheezing. negative: Crackles Cardiovascular: positive: Regular Rhythm, Regular Rate, S1, S2. negative: Murmur, Gallop/S3, Gallop/S4 Vascular Pulses: Dorsalis-Pedis (R): 2+, Doralis-Pedis (L): 2+ Gastrointestinal/Abdominal: positive: Normal Bowel Sounds, Soft. negative: Guarding Neurologic: positive: Fully Oriented, Alert, Normal Mood/Affect ED Treatment Course - Medications Given in the ED: ED Medications Discontinued Medications Generic Name Dose Route Start Last Admin Trade Name Reynaldoq PRN Reason Stop Dose Admin Acetaminophen 975 mg 05/29/19 23:09 05/29/19 23:50 Tylenol - PO 05/29/19 23:10 975 mg ONCE ONE Administration Medical Decision Making - Medical Decision Making 69y/o M w PMHx HTN, HLD (on statin), Hep C (s/p treatment) presenting w 2 week white productive cough, headaches, nasal congestion #Coughing and rhinnorhea likely 2/2 to URI Hx of smoking Douneb treatmentx1 given pt improved symptomatically Albuterol inhaler sent to pharmacy 05/30/19 00:46 05/30/19 00:56 05/30/19 00:58 Discharge - Discharge Information Problems reviewed: Yes Clinical Impression/Diagnosis: Nasal congestion with rhinorrhea Condition: Good - Admission No - Additional Discharge Information Prescriptions: Albuterol Sulfate Inhaler - [Ventolin HFA Inhaler -] 1 - 2 inh PO Q4H #1 inhaler - Follow up/Referral Referrals: Kojo Preston MD [Primary Care Provider] - - Patient Discharge Instructions Patient Printed Discharge Instructions: DI for Viral Upper Respiratory Infection -- Adult Additional Instructions: You were seen in the emergency room for coughing and runny nose While in the emergency room, you were evaluated with lab work, blood work, and imaging including a chest x ray. We found that your symptoms were likely caused by a viral infection of your lungs. We gave you medications and breathing treatment, which improved your symptoms. To prevent further symptoms, please take the following medication Albuterol inhaler as needed for your symptoms Please take all your medications as prescribed Please follow up with your primary care physician within 1 week Return to the emergency room, if you experience any worsening of your symptoms, chest pain, coughing, abdominal pain, fevers, or worsening of your condition. - Post Discharge Activity
--- NOTE | 2019-05-30 00:43 | PDOC ---
Documentation entered by Sanaz Smyth SCRIBE, acting as scribe for Josefa Gonzalez MD. Josefa Gonzalez MD: This documentation has been prepared by the Libra henderson Nirvannie, SCRIBE, under my direction and personally reviewed by me in its entirety. I confirm that the documentation accurately reflects all work, treatment, procedures, and medical decision making performed by me. Attending Attestation - Resident Resident Name: Luis Pierre - ED Attending Attestation I have performed the following: I have examined & evaluated the patient, The case was reviewed & discussed with the resident, I agree w/resident's findings & plan, Exceptions are as noted - HPI HPI: 05/29/19 23:28 The patient is a 69 year old male, with a significant past medical history of HTN, HLD, Hepatitis C (s/p treatment), who presents to the emergency department with, 2 weeks of nasal congestion, headaches, and productive cough with white sputum. Patient endorses using unknown cough suppressant, without relief, prompting his arrival to the ED/ no f/c no other complaints. does report nasal congestion He denies any recent fevers, chills, or dizziness. He denies any recent nausea, vomit, diarrhea or constipation. He denies any recent chest pain or shortness of breath. He denies any recent dysuria, frequency, urgency or hematuria. Allergies: Erythromycin base Primary Care Physician: Dr. Preston 05/30/19 00:42 - Physicial Exam PE: 05/30/19 00:33 awake alert lungs clear bilat heart rrr no mrg abd soft nt ext wwp. skin warm and dry. alert oriented x 3. - Medical Decision Making 05/30/19 00:34 69 yo male h/o htn hld hep c here with cough congestion rhinorhea. viral syndrome. does have h/o smoking .bronchial sounding cough. pln duoneb. cxr. cxr negative for focal pneumonia. plan dc home. with albuterol inhaler.
[2019-05-30 01:18] VITALS: BP 121/68
== END 2019-05-30 01:20 | disposition home or self-care (01) ==
LOC: JER 21:41
PROC: 3E0F7GC Introduction of Other Therapeutic Substance into Respiratory Tract, Via Natural or Artificial Opening (ICD-10-PCS; principal; 2019-05-29)
DX: J06.9 Acute upper respiratory infection, unspecified (principal); B97.89 Other viral agents as the cause of diseases classified elsewhere; I10 Essential (primary) hypertension; E78.5 Hyperlipidemia, unspecified; B18.2 Chronic viral hepatitis C; Z88.1 Allergy status to other antibiotic agents
CPT/HCPCS: 71046-TC-FY; 94640; 99282-25

== ENCOUNTER 2020-06-17 15:19 | Emergency (ER) | payer OTHER, MEDICARE ==
[2020-06-17 15:29] VITALS: BP 141/88; PULSE 94; TEMP 98.1; BMI 21.4
[2020-06-17 18:02] LABS: EPI CELLS 6 /uL (0-25.1); HYALINE CASTS 3 /uL (0-3.1); URINE APPEARANCE CLEAR; URINE BACTERIA 110 /uL (0-1359); URINE BILIRUBIN NEGATIVE (NEGATIVE); URINE COLOR DK YELLOW; URINE GLUCOSE (UA) NEGATIVE (NEGATIVE); URINE KETONE 1+ (NEGATIVE); URINE LEUK ESTERASE TRACE (NEGATIVE); URINE NITRITE NEGATIVE (NEGATIVE); URINE PROTEIN NEGATIVE (NEGATIVE); URINE RBC 17 /uL (0-23.9); URINE UROBILINOGEN 0.2 mg/dL (0.2-1.0); URINE WBC 1 /uL (0-25.8)
== END 2020-06-17 20:09 | disposition home or self-care (01) ==
LOC: JER 15:19
DX: R86 Abnormal findings in specimens from male genital organs (principal)
CPT/HCPCS: 81003; 87086; 99284-25

== ENCOUNTER 2020-09-26 21:03 | Emergency (ER) | payer OTHER, MEDICARE ==
[2020-09-26 21:19] VITALS: BMI 35.4
[2020-09-26 22:33] LABS: HEMATOCRIT 41.4 % (35.4-49); HEMOGLOBIN 13.5 GM/dL (11.7-16.9); MCH 29.6 pg (25.7-33.7); MCHC 32.7 g/dl (32.0-35.9); MEAN CELL VOLUME 90.5 fl (80-96); MEAN PLT VOLUME 7.9 fl (7.5-11.1); NEUT % 61.1 % (42.8-82.8); PLATELET COUNT 230 K/MM3 (134-434); RBC 4.58 M/mm3 (4.00-5.60); RDW 14.1 % (11.9-15.9)
[2020-09-26 22:34] LABS: BASO % 0.9 % (0-2.0); EOS % 1.8 % (0-4.5); LYMPH % 25.7 % (8-40); MONO % 10.5 % (3.8-10.2)
[2020-09-26 22:40] LABS: INR 0.89 (0.83-1.09); PROTHROMBIN TIME (PATIENT) 10.8 SEC (9.7-13.0)
[2020-09-26 22:43] LABS: ACTIVATED PTT 29.8 SECONDS (25.2-36.5)
[2020-09-26 22:54] LABS: CHLORIDE 107 mmol/L (98-107); SODIUM 139 mmol/L (136-145)
[2020-09-26 22:56] LABS: ALBUMIN 3.9 g/dl (3.4-5.0); CALCIUM 8.8 mg/dL (8.5-10.1)
[2020-09-26 22:57] LABS: ANION GAP 5 MMOL/L (8-16); BLOOD UREA NITROGEN 11.8 mg/dL (7-18); CO2 27 mmol/L (21-32); GLUCOSE,RANDOM 97 mg/dL (74-106); MAGNESIUM 2.2 mg/dL (1.8-2.4)
[2020-09-26 23:00] LABS: CREATININE 0.9 mg/dL (0.55-1.3); SGOT/AST 23 U/L (15-37); SGPT/ALT 24 U/L (13-61)
[2020-09-26 23:02] LABS: BILIRUBIN,TOTAL 0.6 mg/dL (0.2-1); TOT PROT 7.6 g/dl (6.4-8.2)
[2020-09-26 23:03] LABS: ALK PHOS 72 U/L (45-117)
[2020-09-27 02:16] VITALS: BP 121/77; PULSE 66; TEMP 97.1
== END 2020-09-27 03:17 | disposition home or self-care (01) ==
LOC: JER 21:03
DX: R00.2 Palpitations (principal)
CPT/HCPCS: 36415; 71045-TC-FY; 80053; 83735; 84443; 84484; 85025; 85610; 85730; 93005; 93010; 99285-25

== ENCOUNTER 2021-03-07 20:17 | Inpatient (IN) | payer OTHER, BC ==
[2021-03-07 20:23] VITALS: BMI 35.6
[2021-03-07 21:18] LABS: EOS % 2.1 % (0-4.5); HEMATOCRIT 41.8 % (35.4-49); LYMPH % 25.8 % (8-40); MCHC 33.5 g/dl (32.0-35.9); MEAN CELL VOLUME 89.6 fl (80-96); MEAN PLT VOLUME 7.5 fl (7.5-11.1); MONO % 12.1 % (3.8-10.2); PLATELET COUNT 206 10^3/uL (134-434); RBC 4.66 M/mm3 (4.00-5.60); RDW 14.3 % (11.9-15.9)
[2021-03-07 21:24] LABS: INR 0.92 (0.83-1.09); PROTHROMBIN TIME (PATIENT) 11.1 SEC (9.7-13.0)
[2021-03-07 21:26] LABS: ACTIVATED PTT 29.4 SECONDS (25.2-36.5)
[2021-03-07 21:37] LABS: CHLORIDE 106 mmol/L (98-107); SODIUM 140 mmol/L (136-145)
[2021-03-07 21:39] LABS: CALCIUM 8.6 mg/dL (8.5-10.1)
[2021-03-07 21:40] LABS: ALBUMIN 3.8 g/dl (3.4-5.0); ANION GAP 6 MMOL/L (8-16); BLOOD UREA NITROGEN 10.5 mg/dL (7-18); CO2 28 mmol/L (21-32)
[2021-03-07 21:42] LABS: GLUCOSE,RANDOM 96 mg/dL (74-106)
[2021-03-07 21:43] LABS: CREATININE 1.1 mg/dL (0.55-1.3); SGOT/AST 46 U/L (15-37); SGPT/ALT 32 U/L (13-61)
[2021-03-07 21:45] LABS: BILIRUBIN,TOTAL 0.4 mg/dL (0.2-1); TOT PROT 7.8 g/dl (6.4-8.2)
[2021-03-07 21:46] LABS: ALK PHOS 63 U/L (45-117)
[2021-03-07] MEDS ORDERED: SODIUM CHLORIDE 500 ML IV STA (22:19)
[2021-03-07] MEDS ORDERED: LACTATED RINGERS SOLUTION 1000 ML INFUS.BAG IV ONE (23:45)
[2021-03-08] MEDS ORDERED: SODIUM CHLORIDE 1,000 ML IV SCH ×2 (04:45→10:09)
[2021-03-08] MEDS ORDERED: ALBUTEROL SO4 HFA INHALER IH PRN (05:36)
[2021-03-08 06:12] LABS: ALBUMIN 3.4 g/dl (3.4-5.0); BLOOD UREA NITROGEN 9.3 mg/dL (7-18); CALCIUM 8.2 mg/dL (8.5-10.1); MAGNESIUM 1.9 mg/dL (1.8-2.4)
[2021-03-08 06:16] LABS: PHOSPHOROUS 2.6 mg/dL (2.5-4.9)
[2021-03-08 06:17] LABS: BILIRUBIN,TOTAL 0.5 mg/dL (0.2-1); TOT PROT 7.1 g/dl (6.4-8.2)
[2021-03-08 09:01] LABS: BASO % 0.6 % (0-2.0); EOS % 2.4 % (0-4.5); HEMATOCRIT 41.7 % (35.4-49); HEMOGLOBIN 14.2 GM/dL (11.7-16.9); LYMPH % 18.9 % (8-40); MCH 30.2 pg (25.7-33.7); MCHC 34.1 g/dl (32.0-35.9); MEAN CELL VOLUME 88.6 fl (80-96); MEAN PLT VOLUME 7.4 fl (7.5-11.1); MONO % 9.3 % (3.8-10.2); NEUT % 68.8 % (42.8-82.8); PLATELET COUNT 199 10^3/uL (134-434); RBC 4.71 M/mm3 (4.00-5.60); RDW 14.2 % (11.9-15.9); WHITE BLOOD COUNT 5.5 K/mm3 (4.0-10.0)
[2021-03-08] MEDS ORDERED: NEBIVOLOL 5 MG TABLET (FP) PO SCH ×2 (10:00→12:00)
[2021-03-08] MEDS ORDERED: amLODIPine BESYLATE 5 MG TABLET (FP) PO SCH ×2 (10:00→22:00)
[2021-03-08] MEDS: ENOXAPARIN NA (PORCINE) 40 MG/0.4 ML DISP.SYRIN SQ SCH (12:39)
[2021-03-08] MEDS ORDERED: NEBIVOLOL 10 MG TABLET (FP) PO ONE (13:15)
[2021-03-08 15:44] LABS: URINE BARBITURATES NEGATIVE (NEGATIVE); URINE BENZODIAZEPINES NEGATIVE (NEGATIVE)
[2021-03-08 15:45] LABS: COCAINE, UR NEGATIVE (NEGATIVE); METHADONE, UR NEGATIVE (NEGATIVE); OPIATES, URI NEGATIVE (NEGATIVE); PHENCYCLIDINE,URINE NEGATIVE (NEGATIVE)
[2021-03-08 15:46] LABS: URINE AMPHETAMINES NEGATIVE (NEGATIVE)
[2021-03-08 15:57] LABS: EPI CELLS 3 /uL (0-25.1); HYALINE CASTS 1 /uL (0-3.1); URINE APPEARANCE CLEAR; URINE BACTERIA 8 /uL (0-1359); URINE BILIRUBIN NEGATIVE (NEGATIVE); URINE COLOR YELLOW; URINE GLUCOSE (UA) NEGATIVE (NEGATIVE); URINE KETONE NEGATIVE (NEGATIVE); URINE LEUK ESTERASE 2+ (NEGATIVE); URINE NITRITE NEGATIVE (NEGATIVE); URINE PROTEIN NEGATIVE (NEGATIVE); URINE RBC 4 /uL (0-23.9); URINE UROBILINOGEN 0.2 mg/dL (0.2-1.0); URINE WBC 53 /uL (0-25.8)
[2021-03-08] MEDS: SODIUM CHLORIDE 1,000 ML IV SCH (19:47)
[2021-03-09] MEDS: SODIUM CHLORIDE 1,000 ML IV SCH (05:26)
[2021-03-09] MEDS ORDERED: NEBIVOLOL 10 MG TABLET (FP) PO SCH (06:03)
[2021-03-09] MEDS ORDERED: PT OWN MED DRAWER 7, Y5N ONE (09:03)
[2021-03-09] MEDS: ENOXAPARIN NA (PORCINE) 40 MG/0.4 ML DISP.SYRIN SQ SCH (09:16)
[2021-03-09 09:24] VITALS: BP 139/80; PULSE 61; TEMP 97.8
[2021-03-09 09:24] LABS: EOS % 1.9 % (0-4.5); HEMATOCRIT 41.4 % (35.4-49); HEMOGLOBIN 13.9 GM/dL (11.7-16.9); LYMPH % 23.3 % (8-40); MCH 29.9 pg (25.7-33.7); MCHC 33.6 g/dl (32.0-35.9); MEAN CELL VOLUME 89.1 fl (80-96); MEAN PLT VOLUME 7.4 fl (7.5-11.1); MONO % 9.3 % (3.8-10.2); NEUT % 64.5 % (42.8-82.8); PLATELET COUNT 191 10^3/uL (134-434); RBC 4.65 M/mm3 (4.00-5.60); RDW 14.1 % (11.9-15.9); WHITE BLOOD COUNT 5.3 K/mm3 (4.0-10.0)
[2021-03-09 09:58] LABS: ALBUMIN 3.4 g/dl (3.4-5.0); BLOOD UREA NITROGEN 6.8 mg/dL (7-18)
[2021-03-09 10:00] LABS: BILIRUBIN,TOTAL 0.6 mg/dL (0.2-1); TOT PROT 7.1 g/dl (6.4-8.2)
[2021-03-09 10:01] LABS: CALCIUM 8.2 mg/dL (8.5-10.1)
[2021-03-09 10:02] LABS: CREATININE 0.9 mg/dL (0.55-1.3); MAGNESIUM 2.1 mg/dL (1.8-2.4)
== END 2021-03-09 14:50 | disposition home or self-care (01) | DRG 558 ==
LOC: JER 20:17 → JERBED 03-08 04:39 → J5S 03-08 09:22
PROVIDERS: ADMIT Internal Medicine; ATTEND Nurse Practitioner Acute Care
DX: M62.82 Rhabdomyolysis (principal); J98.11 Atelectasis; I10 Essential (primary) hypertension; E78.5 Hyperlipidemia, unspecified; N62 Hypertrophy of breast; G47.33 Obstructive sleep apnea (adult) (pediatric); E66.9 Obesity, unspecified; Z68.35 Body mass index [BMI] 35.0-35.9, adult; R06.02 Shortness of breath
CPT/HCPCS: 36415; 71275-TC; 80053; 80061; 80307; 81003; 82550; 82553; 83735; 84100; 84443; 84484; 85025; 85379; 85610; 85730; 93005; 93010; 99285-25; C9803; Q9967; U0003; U0005

== ENCOUNTER 2021-08-17 08:47 | Emergency (ER) | payer OTHER, BC ==
[2021-08-17 08:59] VITALS: PULSE 71; TEMP 97.4; BMI 33.0
[2021-08-17 10:36] LABS: BASO % 0.8 % (0-2.0); EOS % 0.7 % (0-4.5); HEMATOCRIT 40.4 % (35.4-49); HEMOGLOBIN 13.4 GM/dL (11.7-16.9); LYMPH % 14.3 % (8-40); MCH 29.6 pg (25.7-33.7); MCHC 33.1 g/dl (32.0-35.9); MEAN CELL VOLUME 89.6 fl (80-96); MEAN PLT VOLUME 7.4 fl (7.5-11.1); MONO % 12.7 % (3.8-10.2); NEUT % 71.5 % (42.8-82.8); PLATELET COUNT 169 10^3/uL (134-434); RBC 4.51 M/mm3 (4.00-5.60); WHITE BLOOD COUNT 5.8 K/mm3 (4.0-10.0)
[2021-08-17 10:46] LABS: CHLORIDE 106 mmol/L (98-107); SODIUM 130 mmol/L (136-145)
[2021-08-17 10:48] LABS: ALBUMIN 3.3 g/dl (3.4-5.0); BLOOD UREA NITROGEN 16.1 mg/dL (7-18); CALCIUM 8.4 mg/dL (8.5-10.1); CO2 26 mmol/L (21-32); GLUCOSE,RANDOM 107 mg/dL (74-106)
[2021-08-17 10:53] LABS: ALK PHOS 91 U/L (45-117); BILIRUBIN,TOTAL 0.8 mg/dL (0.2-1); TOT PROT 7.9 g/dl (6.4-8.2)
[2021-08-17 10:56] LABS: N-TERMINAL BNP 14.4 pg/ml (5-125)
[2021-08-17 11:06] LABS: ANION GAP -2 MMOL/L (8-16); SGOT/AST 108 U/L (15-37); SGPT/ALT 45 U/L (13-61)
[2021-08-17 11:48] VITALS: BP 133/78
[2021-08-17 12:20] LABS: CALCIUM 8.6 mg/dL (8.5-10.1); CHLORIDE 107 mmol/L (98-107); SODIUM 140 mmol/L (136-145)
[2021-08-17 12:22] LABS: ANION GAP 5 MMOL/L (8-16); BLOOD UREA NITROGEN 15.7 mg/dL (7-18); CO2 27 mmol/L (21-32); GLUCOSE,RANDOM 103 mg/dL (74-106)
== END 2021-08-17 13:40 | disposition home or self-care (01) ==
LOC: JER 08:47
DX: R06.02 Shortness of breath (principal)
CPT/HCPCS: 36415; 71046-TC-FY; 80048; 80053; 82550; 82553; 83880; 84484; 85025; 93005; 93010; 99285-25

== ENCOUNTER 2022-06-29 15:00 | Emergency (ER) | payer OTHER, BC ==
[2022-06-29 15:18] VITALS: BP 137/84; PULSE 79; RESP 18; TEMP 97.8; BMI 34.0
== END 2022-06-29 18:52 | disposition home or self-care (01) ==
LOC: JER 15:00
DX: K64.9 Unspecified hemorrhoids (principal)
CPT/HCPCS: 99282-25